=== PATIENT | male | born 1960 | race Caucasian/White ===

== ENCOUNTER 2018-07-04 07:57 | Inpatient (IN) | payer BC ==
[~2018-07-04] VITALS: Ht 177.8 cm; Wt 91.2 kg
[~2018-07-04 07:57] MED LIST: ACET325T53 GT; ASCO-339 GT; CHOL2000 GT; CHOL500037 GT; COLL100 GT; DULR10 RC; ENULOSE GT; FLEETMO RC; LACT10SO66 GT; LAMO200T2 GT; LEVE750T4 GT; METH1TAB35 GT; OXCA150T5 GT; PRO40 PO; SODI1TAB3 PO
[2018-07-04 08:00] VITALS: BP_SYST 123
[2018-07-04] MEDS ORDERED: LORazepam 2 MG/ML VIAL (FOR ER USE) ONE ×2 (08:11→10:22)
[2018-07-04] MEDS ORDERED: NACL 0.9% 1,000 ML IV ONE (08:15)
[2018-07-04] MEDS ORDERED: ACETAMINOPHEN 650 MG/20.3 ML UDC PO ONE (08:15)
[2018-07-04] MEDS ORDERED: LORazepam 2 MG/ML VIAL (FOR ER USE) IM ONE (08:15)
[2018-07-04] MEDS ORDERED: ACETAMINOPHEN 650 MG SUPP.RECT RC ONE (08:30)
[2018-07-04 09:29] LABS: CALCIUM 8.8 mg/dL (8.4-11.0); CREATININE 0.38 mg/dL (0.55-1.30); POTASSIUM 3.6 mmol/L (3.5-5.1)
[2018-07-04 09:32] LABS: HEMATOCRIT 33.4 % (36-54); HEMOGLOBIN 11.3 g/dL (14.0-18.0); RED BLOOD CELL COUNT(AUTO) 3.48 MIL/uL (4.2-6.2); WHITE BLOOD COUNT (AUTO) 8.4 K/uL (4.8-10.8)
[2018-07-04 09:33] LABS: BASOPHILS % (AUTO) 0.2 % (0.0-2.0); EOSINOPHILS % (AUTO) 0.6 % (0.0-4.0); LYMPHOCYTES # (AUTO) 0.4 K/uL (1.0-5.5); LYMPHOCYTES % (AUTO) 4.7 % (20.5-51.5); MEAN CORPUSCULAR HEMOGLOBIN 32 pg (27-31); MEAN CORPUSCULAR HGB CONC 34 % (32-36); MEAN CORPUSCULAR VOLUME 96 fL (79.0-98.0); MONOCYTES # (AUTO) 0.9 K/uL (0.0-1.0); MONOCYTES % (AUTO) 11.2 % (1.7-9.3); NEUTROPHILS % (AUTO) 83.3 % (40.0-70.0); PLATELET COUNT (AUTO) 172 K/uL (130-430); RED CELL DISTRIBUTION WIDTH 14.6 % (9.0-15.0)
[2018-07-04 09:45] LABS: BILIRUBIN,URINE NEGATIVE (NEGATIVE); BLOOD, URINE 2+ (NEGATIVE); CLARITY/URINE CLEAR (CLEAR); COLOR,URINE YELLOW (YELLOW); GLUCOSE,URINE NEGATIVE (NEGATIVE); KETONES,URINE NEGATIVE (NEGATIVE); LEUKOCYTE ESTERASE ,URINE TRACE (NEGATIVE); NITRITE, URINE NEGATIVE (NEGATIVE); PROTEIN URINE 2+ (NEGATIVE); UROBILINOGEN,URINE 0.2 (0.2-1.0)
[2018-07-04 09:57] LABS: ALBUMIN 2.7 g/dL (3.4-4.8); TOTAL BILIRUBIN 0.3 mg/dL (0.0-1.0)
[2018-07-04 09:58] LABS: BACTERIA,URINE FEW /HPF (None Seen); BARBITURATE, URINE NEGATIVE (NEG <=200); BENZODIAZEPINE, URINE POSITIVE (NEG <=150); CANNABINOID, URINE NEGATIVE (NEG <=50); COCAINE, URINE NEGATIVE (NEG <=150); METHAMPHETAMINES SCREEN,URINE NEGATIVE (NEG <=500); MUCUS,URINE 1+ /LPF (None Seen); OPIATE, URINE NEGATIVE (NEG <=100); PHENCYCLIDINE SCREEN,URINE NEGATIVE (NEG <=25); UR TRICYCLIC ANTIDEPRESSANTS NEGATIVE (NEG <=300); URINE AMPHETAMINE NEGATIVE (NEG <=500); URINE METHADONE NEGATIVE (NEG <=200); URINE OXYCODONE SCREEN NEGATIVE (NEG <=100); URINE PROPOXYPHENE SCREEN NEGATIVE (NEG <=300); WBC,URINE 20-50 /HPF (0-3)
[2018-07-04] MEDS ORDERED: LORazepam 2 MG/ML VIAL (FOR ER USE) IVP ONE ×2 (10:15→10:30)
[2018-07-04] MEDS ORDERED: GENTAMICIN 80 mg/100 mL NS 100 ML IV ONE (10:45)
[2018-07-04] MEDS ORDERED: ALBU2.5V7 (11:06)
[2018-07-04] MEDS ORDERED: MENT3.5O (11:06)
[2018-07-04] MEDS ORDERED: LACT-200 GT (11:06)
[2018-07-04] MEDS ORDERED: FINA5TAB3 GT (11:06)
[2018-07-04] MEDS ORDERED: D-MA50PO GT (11:06)
[2018-07-04] MEDS ORDERED: FLEET (11:06)
[2018-07-04] MEDS ORDERED: MUPI15CR (11:06)
[2018-07-04] MEDS ORDERED: FLOR.1 (11:06)
[2018-07-04] MEDS ORDERED: KLO.5 GT (11:06)
[2018-07-04] MEDS ORDERED: SACC250C3 GT (11:06)
[2018-07-04] MEDS ORDERED: [UNRECOGNIZED DRUG - CODE] IVPB (11:06)
[2018-07-04] MEDS ORDERED: LORazepam 2 MG/ML VIAL IVP PRN (11:30)
[2018-07-04] MEDS ORDERED: ACETAMINOPHEN 325 MG TABLET GT PRN ×2 (11:30→13:30)
[2018-07-04 12:10] VITALS: BP_SYST 184
[2018-07-04 12:20] VITALS: BP_SYST 170
[2018-07-04] MEDS ORDERED: LAM25 GT (12:36)
[2018-07-04] MEDS ORDERED: MIDO5TAB PO (12:43)
[2018-07-04] MEDS ORDERED: MULTIVITAL-M GT (12:43)
[2018-07-04] MEDS ORDERED: FAMO20TA8 GT (12:43)
[2018-07-04] MEDS ORDERED: Keppra solution GT (12:43)
[2018-07-04] MEDS ORDERED: OXCA150T5 GT (12:46)
[2018-07-04] MEDS ORDERED: POTASSIUM CHLORIDE GT (12:53)
[2018-07-04] MEDS ORDERED: METO-290 GT (12:53)
[2018-07-04] MEDS ORDERED: DEPL250/5 GT (13:11)
[2018-07-04] MEDS ORDERED: ONDA4VIA52 GT (13:11)
[2018-07-04] MEDS ORDERED: VALPROIC ACID ORAL SYRUP 250 MG/5 ML UDC GT ONE (13:30)
[2018-07-04] MEDS ORDERED: FINASTERIDE 5 MG TABLET (PROSCAR) GT ONE (13:30)
[2018-07-04] MEDS ORDERED: BISACODYL 10 MG/SUPPOSITORY RC PRN (13:30)
[2018-07-04] MEDS ORDERED: LACTULOSE 20 GM/30 ML UDC GT PRN (13:30)
[2018-07-04] MEDS ORDERED: ONDANSETRON HCL 4 MG/2 ML VIAL IM SCH (13:30)
[2018-07-04] MEDS ORDERED: MINERAL OIL 133 ML ENEMA RC PRN (13:30)
[2018-07-04] MEDS: 0.45% NACL 1,000 ML IV SCH (13:56)
[2018-07-04] MEDS ORDERED: CLINDAMYCIN PHOSPHATE 900 mg/50mL D5W IV SCH ×2 (14:00→22:00)
[2018-07-04] MEDS: MIDODRINE HCL 5 MG TABLET (PROAMATINE) PO SCH ×2 (15:00→21:28)
[2018-07-04] MEDS: METOCLOPRAMIDE HCL 10 MG TABLET GT SCH ×2 (15:47→21:20)
[2018-07-04] MEDS: OXcarbazepine 150 MG TABLET(TRILEPTAL) GT SCH ×2 (15:47→21:20)
[2018-07-04 16:00] VITALS: BP_SYST 160
[2018-07-04] MEDS ORDERED: CLINDAMYCIN 900 mg/50mL D5W 50 ML IV SCH (16:00)
[2018-07-04 16:01] VITALS: BP_SYST 160
[2018-07-04] MEDS ORDERED: levETIRAcetam 500 MG TABLET GT ONE (16:30)
[2018-07-04] MEDS ORDERED: IPRATROPIUM BROM 0.5 MG/2.5 ML VIAL.NEB (ATROVENT) INH PRN (16:30)
[2018-07-04] MEDS ORDERED: ALBUTEROL SULFATE 0.083% 2.5 MG/3 ML VIAL.NEB INH SCH ×2 (19:00→21:00)
[2018-07-04 19:47] VITALS: BP_SYST 117
[2018-07-04] MEDS: ALBUTEROL SULFATE 0.083% 2.5 MG/3 ML VIAL.NEB INH SCH (19:47)
[2018-07-04] MEDS: IPRATROPIUM BROM 0.5 MG/2.5 ML VIAL.NEB (ATROVENT) INH SCH (19:48)
[2018-07-04] MEDS ORDERED: NON-FORMULARY MEDICATION (Methenamine Hippurate 1 G) GT SCH (21:00)
[2018-07-04] MEDS: DOXYCYCLINE HYCLATE 100 MG in D5W 100 ML IV SCH (21:17)
[2018-07-04] MEDS: levETIRAcetam 500 MG TABLET GT SCH (21:18)
[2018-07-04] MEDS: DOCUSATE SODIUM 100 MG/10 ML UDC GT SCH (21:18)
[2018-07-04] MEDS: LamoTRIgine 25 MG TABLET GT SCH (21:19)
[2018-07-04] MEDS: FAMOTIDINE 20 MG TABLET GT SCH (21:19)
[2018-07-04] MEDS: BISACODYL 10 MG/SUPPOSITORY RC SCH (21:19)
[2018-07-04] MEDS: ASCORBIC ACID 500 MG TABLET GT SCH (21:20)
[2018-07-04] MEDS: clonazePAM 0.5 MG TABLET GT SCH (21:20)
[2018-07-04] MEDS: VALPROIC ACID ORAL SYRUP 250 MG/5 ML UDC GT SCH (21:31)
[2018-07-05] MEDS: IPRATROPIUM BROM 0.5 MG/2.5 ML VIAL.NEB (ATROVENT) INH SCH ×4 (00:18→20:04)
[2018-07-05] MEDS: ALBUTEROL SULFATE 0.083% 2.5 MG/3 ML VIAL.NEB INH SCH ×4 (00:18→20:04)
[2018-07-05 00:23] VITALS: BP_SYST 115
[2018-07-05] MEDS: 0.45% NACL 1,000 ML IV SCH ×2 (01:34→15:52)
[2018-07-05 07:42] LABS: WHITE BLOOD COUNT (AUTO) 5.9 K/uL (4.8-10.8)
[2018-07-05 07:43] LABS: BASOPHILS % (AUTO) 0.6 % (0.0-2.0); EOSINOPHILS # (AUTO) 0.1 K/uL (0.0-0.4); EOSINOPHILS % (AUTO) 2.3 % (0.0-4.0); HEMATOCRIT 33.6 % (36-54); HEMOGLOBIN 11.1 g/dL (14.0-18.0); LYMPHOCYTES # (AUTO) 1.2 K/uL (1.0-5.5); LYMPHOCYTES % (AUTO) 20.2 % (20.5-51.5); MEAN CORPUSCULAR HEMOGLOBIN 32 pg (27-31); MEAN CORPUSCULAR HGB CONC 33 % (32-36); MEAN CORPUSCULAR VOLUME 96 fL (79.0-98.0); MONOCYTES % (AUTO) 17.8 % (1.7-9.3); NEUTROPHILS # (AUTO) 3.5 K/uL (1.8-7.7); NEUTROPHILS % (AUTO) 59.1 % (40.0-70.0); PLATELET COUNT (AUTO) 182 K/uL (130-430); RED CELL DISTRIBUTION WIDTH 14.2 % (9.0-15.0)
[2018-07-05] MEDS: METOCLOPRAMIDE HCL 10 MG TABLET GT SCH ×3 (08:17→20:40)
[2018-07-05] MEDS: FINASTERIDE 5 MG TABLET (PROSCAR) GT SCH (08:17)
[2018-07-05] MEDS: FLUDROCORTISONE ACETATE 0.1 MG TABLET( FLORINEF) GT SCH (08:17)
[2018-07-05] MEDS: LACTULOSE 20 GM/30 ML UDC GT SCH (08:17)
[2018-07-05] MEDS: levETIRAcetam 500 MG TABLET GT SCH ×2 (08:17→20:42)
[2018-07-05] MEDS: ASCORBIC ACID 500 MG TABLET GT SCH ×2 (08:17→20:41)
[2018-07-05] MEDS: FAMOTIDINE 20 MG TABLET GT SCH ×2 (08:18→20:40)
[2018-07-05] MEDS: MULTIVITAMINS TAB 1 TABLET GT SCH (08:18)
[2018-07-05] MEDS: DOCUSATE SODIUM 100 MG/10 ML UDC GT SCH ×2 (08:18→20:40)
[2018-07-05] MEDS: DOXYCYCLINE HYCLATE 100 MG in D5W 100 ML IV SCH ×2 (08:18→20:45)
[2018-07-05] MEDS: VALPROIC ACID ORAL SYRUP 250 MG/5 ML UDC GT SCH ×2 (08:20→20:42)
[2018-07-05] MEDS: MIDODRINE HCL 5 MG TABLET (PROAMATINE) PO SCH ×3 (08:21→20:40)
[2018-07-05 08:28] LABS: CALCIUM 9.5 mg/dL (8.4-11.0); CREATININE 0.39 mg/dL (0.55-1.30); POTASSIUM 3.4 mmol/L (3.5-5.1)
[2018-07-05 08:34] LABS: ALBUMIN 2.8 g/dL (3.4-4.8); TOTAL BILIRUBIN 0.4 mg/dL (0.0-1.0)
[2018-07-05] MEDS: NA PHOS,M-B/NA PHOS,DI-BA 118 ML (FLEET ENEMA) RC SCH (09:00)
[2018-07-05] MEDS ORDERED: POTASSIUM CHLORIDE 20 MEQ/PKT PACKET PO ONE (09:45)
[2018-07-05 10:30] LABS: PROTHROMBIN TIME 10.1 SECS (9.5-12.5)
[2018-07-05] MEDS: POTASSIUM CHLORIDE 20 MEQ/PKT PACKET GT SCH (10:47)
[2018-07-05] MEDS: OXcarbazepine 150 MG TABLET(TRILEPTAL) GT SCH ×3 (10:47→20:40)
[2018-07-05] MEDS: LamoTRIgine 25 MG TABLET GT SCH ×2 (10:50→20:44)
[2018-07-05] MEDS ORDERED: LIDOCAINE 2% JELLY UROJECT 10 ML MM ONE ×2 (11:26→12:08)
[2018-07-05] MEDS ORDERED: fentaNYL CITRATE/PF 100 MCG/2 ML AMP ONE (11:26)
[2018-07-05] MEDS ORDERED: MIDAZOLAM HCL 5 MG/5 ML VIAL ONE (11:27)
[2018-07-05] MEDS ORDERED: LIDOCAINE 1%, 20 ML MDV 80 ML ONE (11:27)
[2018-07-05] MEDS: LIDOCAINE MPF 2% 5mL VIAL INH ONE (11:52)
[2018-07-05] MEDS: LIDOCAINE MPF 2% 20 MG/1 ML, 5 ML VIAL INH ONE ×2 (11:52→11:53)
[2018-07-05] MEDS ORDERED: ALBUTEROL SULFATE 0.083% 2.5 MG/3 ML VIAL.NEB INH ONE (12:19)
[2018-07-05] MEDS ORDERED: IPRATROPIUM BROM 0.5 MG/2.5 ML VIAL.NEB (ATROVENT) INH ONE (12:20)
[2018-07-05 12:47] VITALS: BP_SYST 165
[2018-07-05 16:58] VITALS: BP_SYST 152
[2018-07-05 19:10] VITALS: BP_SYST 121
[2018-07-05] MEDS: clonazePAM 0.5 MG TABLET GT SCH (20:41)
[2018-07-05] MEDS: BISACODYL 10 MG/SUPPOSITORY RC SCH (20:42)
[2018-07-05] MEDS ORDERED: hydrALAZINE HCL 25 MG TABLET GT PRN (23:30)
[2018-07-06] MEDS: ALBUTEROL SULFATE 0.083% 2.5 MG/3 ML VIAL.NEB INH SCH ×4 (00:52→19:44)
[2018-07-06] MEDS: IPRATROPIUM BROM 0.5 MG/2.5 ML VIAL.NEB (ATROVENT) INH SCH ×4 (00:52→19:45)
[2018-07-06 01:02] VITALS: BP_SYST 171
[2018-07-06] MEDS: 0.45% NACL 1,000 ML IV SCH ×2 (06:22→11:21)
[2018-07-06 07:13] LABS: CALCIUM 8.9 mg/dL (8.4-11.0); CREATININE 0.29 mg/dL (0.55-1.30); POTASSIUM 3.1 mmol/L (3.5-5.1)
[2018-07-06 07:28] LABS: ALBUMIN 2.4 g/dL (3.4-4.8); TOTAL BILIRUBIN 0.5 mg/dL (0.0-1.0)
[2018-07-06 08:00] VITALS: BP_SYST 143
[2018-07-06] MEDS: LACTULOSE 20 GM/30 ML UDC GT SCH (09:00)
[2018-07-06] MEDS: NA PHOS,M-B/NA PHOS,DI-BA 118 ML (FLEET ENEMA) RC SCH (09:00)
[2018-07-06] MEDS: DOCUSATE SODIUM 100 MG/10 ML UDC GT SCH ×2 (09:00→20:35)
[2018-07-06] MEDS ORDERED: ACETYLCYSTEINE 10% 4 ML VIAL (RT) INH ONE (09:30)
[2018-07-06] MEDS: MULTIVITAMINS TAB 1 TABLET GT SCH (09:58)
[2018-07-06] MEDS: OXcarbazepine 150 MG TABLET(TRILEPTAL) GT SCH ×3 (09:58→20:40)
[2018-07-06] MEDS: DOXYCYCLINE HYCLATE 100 MG in D5W 100 ML IV SCH ×2 (09:58→20:45)
[2018-07-06] MEDS: LamoTRIgine 25 MG TABLET GT SCH ×2 (09:59→20:43)
[2018-07-06] MEDS: FAMOTIDINE 20 MG TABLET GT SCH ×2 (09:59→20:37)
[2018-07-06] MEDS: ASCORBIC ACID 500 MG TABLET GT SCH ×2 (10:00→20:36)
[2018-07-06] MEDS: METOCLOPRAMIDE HCL 10 MG TABLET GT SCH ×3 (10:00→20:36)
[2018-07-06] MEDS: POTASSIUM CHLORIDE 20 MEQ/PKT PACKET GT SCH (10:01)
[2018-07-06] MEDS: FINASTERIDE 5 MG TABLET (PROSCAR) GT SCH (10:01)
[2018-07-06] MEDS: FLUDROCORTISONE ACETATE 0.1 MG TABLET( FLORINEF) GT SCH (10:01)
[2018-07-06] MEDS: levETIRAcetam 500 MG TABLET GT SCH ×2 (10:01→20:35)
[2018-07-06] MEDS: VALPROIC ACID ORAL SYRUP 250 MG/5 ML UDC GT SCH ×2 (10:02→20:35)
[2018-07-06] MEDS: MIDODRINE HCL 5 MG TABLET (PROAMATINE) PO SCH ×3 (10:02→20:44)
[2018-07-06] MEDS ORDERED: POTASSIUM CHLORIDE 20 MEQ/PKT PACKET PO ONE ×2 (10:15→13:30)
[2018-07-06] MEDS: ALBUTEROL SULFATE 0.083% 2.5 MG/3 ML VIAL.NEB INH PRN ×2 (10:21→15:13)
[2018-07-06 12:30] VITALS: BP_SYST 155
[2018-07-06] MEDS: ACETYLCYSTEINE 10% 4 ML VIAL (RT) INH SCH ×2 (15:14→19:45)
[2018-07-06 16:38] VITALS: BP_SYST 121
[2018-07-06 19:10] VITALS: BP_SYST 128
[2018-07-06] MEDS: clonazePAM 0.5 MG TABLET GT SCH (20:37)
[2018-07-06] MEDS: BISACODYL 10 MG/SUPPOSITORY RC SCH (20:38)
[2018-07-07] MEDS: IPRATROPIUM BROM 0.5 MG/2.5 ML VIAL.NEB (ATROVENT) INH SCH ×4 (01:03→19:30)
[2018-07-07] MEDS: ALBUTEROL SULFATE 0.083% 2.5 MG/3 ML VIAL.NEB INH SCH ×4 (01:04→19:30)
[2018-07-07 01:07] VITALS: BP_SYST 158
[2018-07-07] MEDS: 0.45% NACL 1,000 ML IV SCH (05:10)
[2018-07-07 08:23] LABS: ALBUMIN 2.5 g/dL (3.4-4.8); CALCIUM 9.3 mg/dL (8.4-11.0); CREATININE 0.24 mg/dL (0.55-1.30); POTASSIUM 3.4 mmol/L (3.5-5.1); TOTAL BILIRUBIN 0.5 mg/dL (0.0-1.0)
[2018-07-07 08:40] VITALS: BP_SYST 120
[2018-07-07] MEDS: ACETYLCYSTEINE 10% 4 ML VIAL (RT) INH SCH ×3 (08:42→20:00)
[2018-07-07] MEDS: NA PHOS,M-B/NA PHOS,DI-BA 118 ML (FLEET ENEMA) RC SCH ×2 (09:00→09:08)
[2018-07-07] MEDS: LACTULOSE 20 GM/30 ML UDC GT SCH (09:04)
[2018-07-07] MEDS: POTASSIUM CHLORIDE 20 MEQ/PKT PACKET GT SCH (09:04)
[2018-07-07] MEDS: DOCUSATE SODIUM 100 MG/10 ML UDC GT SCH ×2 (09:04→20:18)
[2018-07-07] MEDS: MULTIVITAMINS TAB 1 TABLET GT SCH (09:04)
[2018-07-07] MEDS: VALPROIC ACID ORAL SYRUP 250 MG/5 ML UDC GT SCH ×2 (09:05→20:21)
[2018-07-07] MEDS: OXcarbazepine 150 MG TABLET(TRILEPTAL) GT SCH ×3 (09:06→20:20)
[2018-07-07] MEDS: MIDODRINE HCL 5 MG TABLET (PROAMATINE) PO SCH ×3 (09:06→20:19)
[2018-07-07] MEDS: levETIRAcetam 500 MG TABLET GT SCH ×2 (09:06→20:19)
[2018-07-07] MEDS: ASCORBIC ACID 500 MG TABLET GT SCH ×2 (09:07→20:19)
[2018-07-07] MEDS: METOCLOPRAMIDE HCL 10 MG TABLET GT SCH ×3 (09:07→20:20)
[2018-07-07] MEDS: FAMOTIDINE 20 MG TABLET GT SCH ×2 (09:07→20:19)
[2018-07-07] MEDS: LamoTRIgine 25 MG TABLET GT SCH ×2 (09:43→20:43)
[2018-07-07] MEDS: FINASTERIDE 5 MG TABLET (PROSCAR) GT SCH (09:43)
[2018-07-07] MEDS: FLUDROCORTISONE ACETATE 0.1 MG TABLET( FLORINEF) GT SCH (09:43)
[2018-07-07] MEDS: DOXYCYCLINE HYCLATE 100 MG in D5W 100 ML IV SCH ×2 (09:44→20:20)
[2018-07-07 09:58] LABS: HEMATOCRIT 34.9 % (36-54); HEMOGLOBIN 11.6 g/dL (14.0-18.0); LYMPHOCYTES % (AUTO) 9.3 % (20.5-51.5); MEAN CORPUSCULAR HEMOGLOBIN 32 pg (27-31); MEAN CORPUSCULAR HGB CONC 33 % (32-36); MEAN CORPUSCULAR VOLUME 95 fL (79.0-98.0); MONOCYTES % (AUTO) 17.6 % (1.7-9.3); PLATELET COUNT (AUTO) 249 K/uL (130-430); RED BLOOD CELL COUNT(AUTO) 3.67 MIL/uL (4.2-6.2); RED CELL DISTRIBUTION WIDTH 14.6 % (9.0-15.0); WHITE BLOOD COUNT (AUTO) 9.4 K/uL (4.8-10.8)
[2018-07-07 09:59] LABS: BASOPHILS % (AUTO) 0.3 % (0.0-2.0); EOSINOPHILS # (AUTO) 0.1 K/uL (0.0-0.4); EOSINOPHILS % (AUTO) 1.4 % (0.0-4.0); LYMPHOCYTES # (AUTO) 0.9 K/uL (1.0-5.5); MONOCYTES # (AUTO) 1.7 K/uL (0.0-1.0); NEUTROPHILS # (AUTO) 6.7 K/uL (1.8-7.7)
[2018-07-07] MEDS ORDERED: LIDOCAINE 2% JELLY UROJECT 10 ML MM ONE ×2 (10:39→11:18)
[2018-07-07] MEDS ORDERED: fentaNYL CITRATE/PF 100 MCG/2 ML AMP ONE (10:40)
[2018-07-07] MEDS ORDERED: LIDOCAINE 1%, 20 ML MDV 60 ML ONE (10:40)
[2018-07-07] MEDS ORDERED: MIDAZOLAM HCL 5 MG/5 ML VIAL ONE (10:40)
[2018-07-07 11:25] LABS: NEUTROPHILS % (AUTO) 71.4 % (40.0-70.0)
[2018-07-07] MEDS ORDERED: ACETYLCYSTEINE 20% 4 ML VIAL (RT) INH ONE (11:30)
[2018-07-07] MEDS ORDERED: POTASSIUM CHLORIDE 20 MEQ/PKT PACKET GT ONE (11:45)
[2018-07-07 12:08] LABS: PROTHROMBIN TIME 10.4 SECS (9.5-12.5)
[2018-07-07] MEDS: ALBUTEROL SULFATE 0.083% 2.5 MG/3 ML VIAL.NEB INH PRN (15:31)
[2018-07-07 16:20] VITALS: BP_SYST 130
[2018-07-07 18:14] VITALS: BP_SYST 130
[2018-07-07 19:24] VITALS: BP_SYST 141
[2018-07-07] MEDS: clonazePAM 0.5 MG TABLET GT SCH (20:19)
[2018-07-07] MEDS: BISACODYL 10 MG/SUPPOSITORY RC SCH (20:19)
[2018-07-07] MEDS: CEFEPIME 1 GM in D5W 50 ML IV SCH (20:20)
[2018-07-08] MEDS: IPRATROPIUM BROM 0.5 MG/2.5 ML VIAL.NEB (ATROVENT) INH SCH ×4 (00:31→19:38)
[2018-07-08] MEDS: ALBUTEROL SULFATE 0.083% 2.5 MG/3 ML VIAL.NEB INH SCH ×4 (00:31→19:38)
[2018-07-08 01:17] VITALS: BP_SYST 127
[2018-07-08] MEDS: 0.45% NACL 1,000 ML IV SCH (06:00)
[2018-07-08 07:44] VITALS: BP_SYST 102
[2018-07-08] MEDS: ACETYLCYSTEINE 10% 4 ML VIAL (RT) INH SCH ×3 (08:30→19:38)
[2018-07-08] MEDS: VALPROIC ACID ORAL SYRUP 250 MG/5 ML UDC GT SCH ×2 (08:48→22:12)
[2018-07-08] MEDS: POTASSIUM CHLORIDE 20 MEQ/PKT PACKET GT SCH (08:48)
[2018-07-08] MEDS: DOCUSATE SODIUM 100 MG/10 ML UDC GT SCH ×2 (08:48→22:11)
[2018-07-08] MEDS: levETIRAcetam 500 MG TABLET GT SCH ×2 (08:48→22:11)
[2018-07-08] MEDS: LACTULOSE 20 GM/30 ML UDC GT SCH (08:48)
[2018-07-08] MEDS: OXcarbazepine 150 MG TABLET(TRILEPTAL) GT SCH ×3 (08:49→22:14)
[2018-07-08] MEDS: FINASTERIDE 5 MG TABLET (PROSCAR) GT SCH (08:49)
[2018-07-08] MEDS: MULTIVITAMINS TAB 1 TABLET GT SCH (08:49)
[2018-07-08] MEDS: FAMOTIDINE 20 MG TABLET GT SCH ×2 (08:49→22:14)
[2018-07-08] MEDS: FLUDROCORTISONE ACETATE 0.1 MG TABLET( FLORINEF) GT SCH (08:49)
[2018-07-08] MEDS: MIDODRINE HCL 5 MG TABLET (PROAMATINE) PO SCH ×3 (08:50→22:12)
[2018-07-08] MEDS: METOCLOPRAMIDE HCL 10 MG TABLET GT SCH ×3 (08:50→22:14)
[2018-07-08] MEDS: CEFEPIME 1 GM in D5W 50 ML IV SCH ×2 (08:51→22:10)
[2018-07-08] MEDS: ASCORBIC ACID 500 MG TABLET GT SCH ×2 (08:55→22:12)
[2018-07-08] MEDS: NA PHOS,M-B/NA PHOS,DI-BA 118 ML (FLEET ENEMA) RC SCH (08:57)
[2018-07-08] MEDS: LamoTRIgine 25 MG TABLET GT SCH ×2 (10:55→22:13)
[2018-07-08] MEDS: DOXYCYCLINE HYCLATE 100 MG in D5W 100 ML IV SCH (10:55)
[2018-07-08 11:34] VITALS: BP_SYST 110
[2018-07-08 16:02] VITALS: BP_SYST 110
[2018-07-08 20:00] VITALS: BP_SYST 112
[2018-07-08] MEDS: BISACODYL 10 MG/SUPPOSITORY RC SCH (22:11)
[2018-07-08] MEDS: clonazePAM 0.5 MG TABLET GT SCH (22:12)
[2018-07-08 23:54] VITALS: BP_SYST 113
[2018-07-09] MEDS: ALBUTEROL SULFATE 0.083% 2.5 MG/3 ML VIAL.NEB INH SCH ×3 (00:54→13:37)
[2018-07-09] MEDS: IPRATROPIUM BROM 0.5 MG/2.5 ML VIAL.NEB (ATROVENT) INH SCH ×3 (00:55→13:37)
[2018-07-09] MEDS: 0.45% NACL 1,000 ML IV SCH (05:57)
[2018-07-09] MEDS: ACETYLCYSTEINE 10% 4 ML VIAL (RT) INH SCH (07:20)
[2018-07-09 08:00] VITALS: BP_SYST 108
[2018-07-09] MEDS: NA PHOS,M-B/NA PHOS,DI-BA 118 ML (FLEET ENEMA) RC SCH (09:00)
[2018-07-09] MEDS: CEFEPIME 1 GM in D5W 50 ML IV SCH (09:05)
[2018-07-09] MEDS: OXcarbazepine 150 MG TABLET(TRILEPTAL) GT SCH (09:08)
[2018-07-09] MEDS: VALPROIC ACID ORAL SYRUP 250 MG/5 ML UDC GT SCH (09:08)
[2018-07-09] MEDS: LamoTRIgine 25 MG TABLET GT SCH (09:08)
[2018-07-09] MEDS: DOCUSATE SODIUM 100 MG/10 ML UDC GT SCH (09:08)
[2018-07-09] MEDS: LACTULOSE 20 GM/30 ML UDC GT SCH (09:08)
[2018-07-09] MEDS: FINASTERIDE 5 MG TABLET (PROSCAR) GT SCH (09:09)
[2018-07-09] MEDS: FAMOTIDINE 20 MG TABLET GT SCH (09:09)
[2018-07-09] MEDS: POTASSIUM CHLORIDE 20 MEQ/PKT PACKET GT SCH (09:09)
[2018-07-09] MEDS: ASCORBIC ACID 500 MG TABLET GT SCH (09:09)
[2018-07-09] MEDS: METOCLOPRAMIDE HCL 10 MG TABLET GT SCH (09:10)
[2018-07-09] MEDS: MIDODRINE HCL 5 MG TABLET (PROAMATINE) PO SCH (09:10)
[2018-07-09] MEDS: FLUDROCORTISONE ACETATE 0.1 MG TABLET( FLORINEF) GT SCH (09:10)
[2018-07-09] MEDS: levETIRAcetam 500 MG TABLET GT SCH (09:10)
[2018-07-09] MEDS: MULTIVITAMINS TAB 1 TABLET GT SCH (09:10)
[2018-07-09 11:33] VITALS: BP_SYST 97
[2018-07-09 12:23] VITALS: BP_SYST 110
== END 2018-07-09 14:25 | DRG 871 ==
LOC: SED 07:57 → STU 11:16
PROVIDERS: ADMIT Internal Medicine; ATTEND Internal Medicine
PROC: 0BC78ZZ Extirpation of Matter from Left Main Bronchus, Via Natural or Artificial Opening Endoscopic (ICD-10-PCS; 2018-07-05)
PROC: 0B9J8ZX Drainage of Left Lower Lung Lobe, Via Natural or Artificial Opening Endoscopic, Diagnostic (ICD-10-PCS; 2018-07-05)
PROC: 0BC18ZZ Extirpation of Matter from Trachea, Via Natural or Artificial Opening Endoscopic (ICD-10-PCS; principal; 2018-07-05 11:30)
PROC: 0BC18ZZ Extirpation of Matter from Trachea, Via Natural or Artificial Opening Endoscopic (ICD-10-PCS; 2018-07-07)
PROC: 0BC78ZZ Extirpation of Matter from Left Main Bronchus, Via Natural or Artificial Opening Endoscopic (ICD-10-PCS; 2018-07-07)
DX: A41.9 Sepsis, unspecified organism (principal); J69.0 Pneumonitis due to inhalation of food and vomit; G82.50 Quadriplegia, unspecified; J96.01 Acute respiratory failure with hypoxia; N39.0 Urinary tract infection, site not specified; G93.40 Encephalopathy, unspecified; J98.11 Atelectasis; T17.490A Other foreign object in trachea causing asphyxiation, initial encounter; J98.19 Other pulmonary collapse; B96.5 Pseudomonas (aeruginosa) (mallei) (pseudomallei) as the cause of diseases classified elsewhere; F03.90 Unspecified dementia, unspecified severity, without behavioral disturbance, psychotic disturbance, mood disturbance, and anxiety; Z66 Do not resuscitate; X58.XXXA Exposure to other specified factors, initial encounter; G40.909 Epilepsy, unspecified, not intractable, without status epilepticus; Z87.440 Personal history of urinary (tract) infections; Y93.89 Activity, other specified; Y92.89 Other specified places as the place of occurrence of the external cause; Y99.8 Other external cause status; Z87.820 Personal history of traumatic brain injury; Z88.0 Allergy status to penicillin; Z88.1 Allergy status to other antibiotic agents; Z88.8 Allergy status to other drugs, medicaments and biological substances; Z79.899 Other long term (current) drug therapy; Z93.1 Gastrostomy status
CPT/HCPCS: 31624; 36415; 36600; 71045; 71250-TC; 80053; 80164-TC; 80307; 81000-TC; 82803-TC; 83605; 83735-TC; 85025; 85610-TC; 85730-TC; 87040-TC; 87070-TC; 87081; 87086; 87101; 87116; 87186-TC; 88108; 88305; 93005; 94640; 94668; 94760; 96361; 96374; 99285; C1751; G0378; J0692; J1580; J1953; J2001; J2060; J2250; J3010; J3490; J7060; J7608; J7613; J8597

== ENCOUNTER 2021-02-19 11:33 | Emergency (ER) | payer BC ==
[~2021-02-19] VITALS: Ht 177.8 cm; Wt 104.3 kg
[~2021-02-19 11:33] MED LIST changes: +ALBU2.5V7; +D-MA50PO GT; +DEPL250/5 GT; +FAMO20TA8 GT; +FINA5TAB3 GT; +FLEET; +FLOR.1; +KLO.5 GT; +Keppra solution GT; +LACT-200 GT; +LAM25 GT; -LAMO200T2 GT; -LEVE750T4 GT; +MENT3.5O; +METO-290 GT; +MIDO5TAB4 PO; +MULTIVITAL-M GT; +MUPI15CR; +ONDA4VIA52 GT; +POTASSIUM CHLORIDE GT; -PRO40 PO; +SACC250C3 GT; +[UNRECOGNIZED DRUG - CODE] IVPB
--- NOTE | 2021-02-19 11:35 | NUR ---
Placed in room 2 . Placed on security monitor, blood pressure machine and pulse oximeter. To gown for exam. Side rails up.
[2021-02-19 11:37] VITALS: BP_SYST 120
--- NOTE | 2021-02-19 11:37 | NUR ---
PT BIBA FROM [facility] C/O DISLODGED G-TUBE, PT ARRIVES WITH [facility] CATH IN PLACE. PER FACILITY PT HAD #22 KYRGYZ G-TUBE WAS IN PLACE PREVIOUSLY. PT ARRIVES CONTRACTED IN ALL 4 EXTREMETIES, NON-VERBAL, 2LNC, HERNAN[facility] CATH IN PLACE, INCONTINANT WITH DIAPER IN PLACE.
--- NOTE | 2021-02-19 11:40 | NUR ---
# 22 FR G-TUBE catheter with use of sterile technique. Immediate return of 5 cc GASTRIC CONTENT noted.Pt tolerated procedure WELL.
[2021-02-19] MEDS ORDERED: DIATR MEGLU/DIATRIZ SOD 30 ML SOLUTION PO ONE (11:48)
--- NOTE | 2021-02-19 12:15 | NUR ---
PORTABLE X-RAY AT THE BEDSIDE
--- NOTE | 2021-02-19 13:00 | NUR ---
Patient given written and verbal discharge instructions and verbalizes understanding. ER MD discussed with patient the results and treatment provided. Patient in stable condition. ID arm band removed. NO Rx given. Patient educated on pain management and to follow up with PMD. Pain Scale 0/10. Opportunity for questions provided and answered. Medication side effect fact sheet provided.
[2021-02-19 13:20] VITALS: BP_SYST 141
== END 2021-02-19 13:00 ==
LOC: SED 11:33
DX: K94.23 Gastrostomy malfunction (principal); Z88.0 Allergy status to penicillin; Z88.1 Allergy status to other antibiotic agents; Z88.2 Allergy status to sulfonamides; Z79.899 Other long term (current) drug therapy
CPT/HCPCS: 43762; 74240; 99284; Q9964

== ENCOUNTER 2021-05-28 01:38 | Emergency (ER) | payer BC ==
[~2021-05-28] VITALS: Ht 172.7 cm; Wt 81.6 kg
[2021-05-28 01:40] VITALS: BP_SYST 116
[2021-05-28] MEDS ORDERED: GASTROGRAFIN 120 ML ONE (02:45)
[2021-05-28 10:46] VITALS: BP_SYST 133
== END 2021-05-28 10:47 ==
LOC: SED 01:38
DX: K94.23 Gastrostomy malfunction (principal); Z88.0 Allergy status to penicillin; Z88.1 Allergy status to other antibiotic agents; Z88.2 Allergy status to sulfonamides; Z79.899 Other long term (current) drug therapy
CPT/HCPCS: 43762; 74018; 99284; Q9963; 76376

== ENCOUNTER 2021-10-03 17:50 | Emergency (ER) | payer BC ==
[~2021-10-03] VITALS: Ht 167.6 cm; Wt 81.6 kg
--- NOTE | 2021-10-03 17:55 | NUR ---
Patient to ER bed 05 to gown for evaluation. Side rails up.
--- NOTE | 2021-10-03 17:56 | NUR ---
Pt brought by BLS, A&O to pain, eyes open, pt presents to ER for G-tube replacement 18 samoan , per boarding care G-tube was dislodged today at 1800, folley catheter was placed in the stoma site, pt is afebrile, VSS
[2021-10-03 17:59] VITALS: BP_SYST 150
[2021-10-03] MEDS ORDERED: GASTROGRAFIN 120 ML ONE (18:06)
--- NOTE | 2021-10-03 18:15 | NUR ---
Dr Bonilla evaluating patient at bedside
--- NOTE | 2021-10-03 19:15 | NUR ---
Report given to Wang MOORE
--- NOTE | 2021-10-03 19:20 | NUR ---
First contact. Pt presently on monitor. NO acute distress noted.
[2021-10-03 21:31] VITALS: BP_SYST 143
--- NOTE | 2021-10-03 21:31 | NUR ---
EMS given written and verbal discharge instructions and verbalizes understanding. Patient in stable condition. ID arm band removed. Provided copy of imaging report to show proof of correct placement of g-tube. Follow up instructions includes most recent blood sugar check.
== END 2021-10-03 21:31 | disposition home or self-care (01) ==
LOC: SED 17:50
DX: K94.23 Gastrostomy malfunction (principal); Z88.0 Allergy status to penicillin; Z88.1 Allergy status to other antibiotic agents; Z79.899 Other long term (current) drug therapy
CPT/HCPCS: 99284; 43762; 82962; 74240; Q9963